=== PATIENT | male | born 1955 | race Caucasian/White ===

== ENCOUNTER 2021-11-20 11:12 | Emergency (ER) | payer BC, MEDICARE ==
[~2021-11-20] VITALS: Ht 185.4 cm; Wt 107.0 kg
[~2021-11-20 11:12] MED LIST: ASPI-1265 PO; NAPR220C15 PO; OMEG1CAP54 PO; OMEG500C PO; OMEP-84 PO
[2021-11-20 12:10] LABS: BASOPHILS % (AUTO) 0.4 % (0-1); EOSINOPHILS % (AUTO) 0.3 % (0-6); HEMATOCRIT 49.3 % (42.0-52.0); LYMPHOCYTES # (AUTO) 1.1 X10'3 (1.1-4.8); LYMPHOCYTES % (AUTO) 17.6 % (21-51); MEAN CORPUSCULAR HEMOGLOBIN 32.1 PG (27.0-31.0); MEAN CORPUSCULAR HGB CONC 34.4 g/dL (33.0-36.5); MEAN CORPUSCULAR VOLUME 93.2 FL (78-98); MEAN PLATELET VOLUME 8.1 FL (7.4-10.4); MONOCYTES % (AUTO) 15.7 % (2-12); NEUTROPHILS # (AUTO) 4.1 X10'3 (1.8-7.7); PLATELET COUNT 240 X10'3 (140-440); RED BLOOD COUNT 5.29 X10'6 (4.70-6.10); WHITE BLOOD COUNT 6.2 X10'3 (4.5-11.0)
[2021-11-20 12:39] LABS: ALANINE AMINOTRANSFERASE 38 U/L (12-78); ALBUMIN 4.1 G/DL (3.4-5.0); ALKALINE PHOSPHATASE 63 IU/L (46-116); ANION GAP 8 (8-16); ASPARTATE AMINO TRANSFERASE 30 U/L (10-37); BILIRUBIN,TOTAL 0.6 MG/DL (0.1-1.0); BLOOD UREA NITROGEN 11 MG/DL (7-18); BUN/CREATININE RATIO 8.6 (5.4-32.0); CALCIUM 9.4 MG/DL (8.5-10.1); CHLORIDE 104 MMOL/L (99-107); CREATININE 1.28 MG/DL (0.60-1.10); GLUCOSE 101 MG/DL (70-104); POTASSIUM 4.2 MMOL/L (3.5-5.1); SODIUM 141 MMOL/L (135-145); TOTAL CARBON DIOXIDE 28.6 MMOL/L (24-32); TOTAL PROTEIN 8.2 G/DL (6.4-8.2); eGFR 56 ML/MIN
[2021-11-20 15:00] VITALS: BP 144/103
[2021-11-20] MEDS ORDERED: acetaminophen 325mg tablet PO ONE (15:10)
[2021-11-20] MEDS ORDERED: dexamethasone 4mg/ml inj IV STA (15:27)
[2021-11-20] MEDS ORDERED: CASIRIVIMAB/IMDEVIMAB inject. 10 ML in normal saline 100ml IV soln 100 ML IV ONE (15:30)
[2021-11-20] MEDS ORDERED: DEXA6TAB6 PO ×2 (16:00)
--- NOTE | 2021-11-20 16:05 | NUR ---
Pt given and understands d/c instructions. Ambulatory with a steady gait.
== END 2021-11-20 16:05 | disposition home or self-care (01) ==
LOC: ER 11:12
DX: U07.1 COVID-19 (principal); R06.02 Shortness of breath; R42 Dizziness and giddiness; E78.00 Pure hypercholesterolemia, unspecified; K21.9 Gastro-esophageal reflux disease without esophagitis; Z72.89 Other problems related to lifestyle; Z79.82 Long term (current) use of aspirin; Z79.899 Other long term (current) drug therapy
CPT/HCPCS: 71045; 80053; 83605; 83880; 85025; 87635; 99284; C9803

== ENCOUNTER 2021-11-23 08:10 | Emergency (ER) | payer BC, MEDICARE ==
[~2021-11-23] VITALS: Ht 185.4 cm; Wt 106.8 kg
[~2021-11-23 08:10] MED LIST changes: +DEXA6TAB6 PO
[2021-11-23] MEDS ORDERED: BAMLANIVIMAB&ETESEVIMAB 2100mg 2,100 MG in normal saline 100ml IV soln 100 ML IV ONE (09:30)
[2021-11-23 09:42] LABS: BASOPHILS % (AUTO) 0.1 % (0-1); EOSINOPHILS % (AUTO) 0 % (0-6); HEMATOCRIT 47.8 % (42.0-52.0); HEMOGLOBIN 16.5 g/dl (14.0-17.9); LYMPHOCYTES # (AUTO) 0.5 X10'3 (1.1-4.8); LYMPHOCYTES % (AUTO) 5.5 % (21-51); MEAN CORPUSCULAR HGB CONC 34.5 g/dL (33.0-36.5); MEAN CORPUSCULAR VOLUME 92.7 FL (78-98); MEAN PLATELET VOLUME 8.1 FL (7.4-10.4); MONOCYTES # (AUTO) 0.9 X10'3 (0-0.9); MONOCYTES % (AUTO) 9.6 % (2-12); NEUTROPHILS # (AUTO) 7.7 X10'3 (1.8-7.7); NEUTROPHILS % (AUTO) 84.8 % (42-75); PLATELET COUNT 228 X10'3 (140-440); RED BLOOD COUNT 5.15 X10'6 (4.70-6.10); RED CELL DISTRIBUTION WIDTH 13.1 % (11.5-14.5); WHITE BLOOD COUNT 9.1 X10'3 (4.5-11.0)
[2021-11-23 09:46] LABS: D-DIMER 1.48 MG/L FEU (0-0.50)
[2021-11-23 09:49] LABS: ALANINE AMINOTRANSFERASE 66 U/L (12-78); ALKALINE PHOSPHATASE 60 IU/L (46-116); ANION GAP 8 (8-16); ASPARTATE AMINO TRANSFERASE 55 U/L (10-37); BILIRUBIN,TOTAL 0.7 MG/DL (0.1-1.0); BLOOD UREA NITROGEN 16 MG/DL (7-18); BUN/CREATININE RATIO 11.9 (5.4-32.0); C-REACTIVE PROTEIN 0.35 MG/DL (0.0-0.5); CALCIUM 9.1 MG/DL (8.5-10.1); CHLORIDE 101 MMOL/L (99-107); CREATININE 1.34 MG/DL (0.60-1.10); GLUCOSE 94 MG/DL (70-104); POTASSIUM 3.5 MMOL/L (3.5-5.1); SODIUM 137 MMOL/L (135-145); TOTAL CARBON DIOXIDE 27.6 MMOL/L (24-32); TOTAL PROTEIN 7.9 G/DL (6.4-8.2); eGFR 53 ML/MIN
[2021-11-23 12:45] VITALS: BP 134/92
--- NOTE | 2021-11-23 12:45 | NUR ---
Pt given and understands d/c instructions. IV d/c'd, catheter was intact. Ambulatory with a steady gait.
== END 2021-11-23 14:00 | disposition home or self-care (01) ==
LOC: ER 08:35
DX: U07.1 COVID-19 (principal); R06.00 Dyspnea, unspecified; E78.00 Pure hypercholesterolemia, unspecified; K21.9 Gastro-esophageal reflux disease without esophagitis; Z79.899 Other long term (current) drug therapy; Z79.82 Long term (current) use of aspirin
CPT/HCPCS: 36415; 71045; 80053; 84145; 85025; 85379; 86140; 99291; J3490; M0245; Q0245

== ENCOUNTER 2021-11-26 11:00 | Emergency (ER) | payer BC ==
[~2021-11-26] VITALS: Ht 180.3 cm; Wt 81.8 kg
[2021-11-26 12:38] LABS: BASOPHILS % (AUTO) 0.2 % (0-1); EOSINOPHILS % (AUTO) 0 % (0-6); HEMATOCRIT 49.7 % (42.0-52.0); HEMOGLOBIN 17.1 g/dl (14.0-17.9); LYMPHOCYTES # (AUTO) 1.3 X10'3 (1.1-4.8); LYMPHOCYTES % (AUTO) 14.6 % (21-51); MEAN CORPUSCULAR HEMOGLOBIN 31.9 PG (27.0-31.0); MEAN CORPUSCULAR HGB CONC 34.5 g/dL (33.0-36.5); MEAN CORPUSCULAR VOLUME 92.6 FL (78-98); MEAN PLATELET VOLUME 8.2 FL (7.4-10.4); MONOCYTES # (AUTO) 1.3 X10'3 (0-0.9); MONOCYTES % (AUTO) 14.6 % (2-12); NEUTROPHILS # (AUTO) 6.5 X10'3 (1.8-7.7); NEUTROPHILS % (AUTO) 70.6 % (42-75); PLATELET COUNT 304 X10'3 (140-440); RED BLOOD COUNT 5.36 X10'6 (4.70-6.10); WHITE BLOOD COUNT 9.3 X10'3 (4.5-11.0)
[2021-11-26 12:51] LABS: ALANINE AMINOTRANSFERASE 190 U/L (12-78); ALBUMIN 3.8 G/DL (3.4-5.0); ALBUMIN/GLOBULIN RATIO 0.8 (1.1-1.5); ALKALINE PHOSPHATASE 70 IU/L (46-116); ANION GAP 10 (8-16); ASPARTATE AMINO TRANSFERASE 81 U/L (10-37); BILIRUBIN,TOTAL 0.8 MG/DL (0.1-1.0); BLOOD UREA NITROGEN 18 MG/DL (7-18); BUN/CREATININE RATIO 14.8 (5.4-32.0); CALCIUM 9.5 MG/DL (8.5-10.1); CHLORIDE 101 MMOL/L (99-107); CREATININE 1.22 MG/DL (0.60-1.10); GLUCOSE 95 MG/DL (70-104); POTASSIUM 4.1 MMOL/L (3.5-5.1); SODIUM 140 MMOL/L (135-145); TOTAL CARBON DIOXIDE 28.9 MMOL/L (24-32); TOTAL PROTEIN 8.7 G/DL (6.4-8.2); eGFR 59 ML/MIN
[2021-11-26] MEDS ORDERED: dexamethasone sod phosphate 10mg/ml inj IV STA (13:44)
[2021-11-26] MEDS ORDERED: iohexol 350MG/ML 100ml bottle IV ONE (15:05)
[2021-11-26] MEDS ORDERED: normal saline 1000ML IV soln IVB ONE (17:10)
[2021-11-26] MEDS ORDERED: acetaminophen 325mg tablet PO ONE ×2 (17:10→18:00)
[2021-11-26] MEDS ORDERED: PRED20TA PO ×3 (18:02→18:03)
[2021-11-26 18:57] VITALS: BP 155/107
[2021-11-27] MEDS ORDERED: MULT-1085 PO (16:45)
[2021-11-27] MEDS ORDERED: OMEG10006 PO (16:45)
[2021-11-27] MEDS ORDERED: ASPI-611 PO (16:45)
== END 2021-11-26 18:29 | disposition home or self-care (01) ==
LOC: ER 11:01
DX: U07.1 COVID-19 (principal); E78.00 Pure hypercholesterolemia, unspecified; K21.9 Gastro-esophageal reflux disease without esophagitis; Z72.89 Other problems related to lifestyle; Z79.82 Long term (current) use of aspirin; Z79.899 Other long term (current) drug therapy
CPT/HCPCS: 36415; 71045; 71275; 80053; 83880; 84145; 85025; 85610; 87502; 87503; 93005; 96361; 96374; 99285; J1100; J7030; Q9967

== ENCOUNTER 2021-11-27 14:39 | Inpatient (IN) | payer BC ==
[~2021-11-27] VITALS: Ht 185.4 cm; Wt 106.8 kg
[~2021-11-27 14:39] MED LIST changes: +PRED20TA PO
[2021-11-27] MEDS ORDERED: DEXAMETHASONE 6 MG TABLET PO STA (15:10)
[2021-11-27 15:42] LABS: BASOPHILS % (AUTO) 0.2 % (0-1); EOSINOPHILS % (AUTO) 0 % (0-6); HEMATOCRIT 48.4 % (42.0-52.0); HEMOGLOBIN 16.4 g/dl (14.0-17.9); LYMPHOCYTES % (AUTO) 10.5 % (21-51); MEAN CORPUSCULAR HEMOGLOBIN 31.3 PG (27.0-31.0); MEAN CORPUSCULAR VOLUME 92.2 FL (78-98); MEAN PLATELET VOLUME 7.8 FL (7.4-10.4); MONOCYTES # (AUTO) 1.8 X10'3 (0-0.9); MONOCYTES % (AUTO) 20.2 % (2-12); NEUTROPHILS # (AUTO) 6.3 X10'3 (1.8-7.7); NEUTROPHILS % (AUTO) 69.1 % (42-75); PLATELET COUNT 327 X10'3 (140-440); RED BLOOD COUNT 5.25 X10'6 (4.70-6.10); RED CELL DISTRIBUTION WIDTH 13.1 % (11.5-14.5); WHITE BLOOD COUNT 9.1 X10'3 (4.5-11.0)
[2021-11-27 15:53] LABS: ALANINE AMINOTRANSFERASE 127 U/L (12-78); ALBUMIN 3.3 G/DL (3.4-5.0); ALBUMIN/GLOBULIN RATIO 0.8 (1.1-1.5); ALKALINE PHOSPHATASE 64 IU/L (46-116); ANION GAP 11 (8-16); ASPARTATE AMINO TRANSFERASE 50 U/L (10-37); BILIRUBIN,TOTAL 0.9 MG/DL (0.1-1.0); BLOOD UREA NITROGEN 16 MG/DL (7-18); BUN/CREATININE RATIO 15.7 (5.4-32.0); CALCIUM 9.2 MG/DL (8.5-10.1); CHLORIDE 100 MMOL/L (99-107); CREATININE 1.02 MG/DL (0.60-1.10); GLUCOSE 107 MG/DL (70-104); POTASSIUM 3.8 MMOL/L (3.5-5.1); SODIUM 133 MMOL/L (135-145); TOTAL CARBON DIOXIDE 22.5 MMOL/L (24-32); TOTAL PROTEIN 7.7 G/DL (6.4-8.2); eGFR 73 ML/MIN
[2021-11-27 16:20] LABS: PLATELET ESTIMATE NORMAL; TOTAL CELLS COUNTED 100
[2021-11-27] MEDS ORDERED: potassium CL 10mEq/100ml bag 100 ML IV PRN (16:35)
[2021-11-27] MEDS ORDERED: magnesium Cl slow-release 64mg tablet PO PRN (16:35)
[2021-11-27] MEDS ORDERED: magnesium hydroxide 30ml (MOM) UD suspension PO PRN (16:35)
[2021-11-27] MEDS ORDERED: magnesium 4gm in 100ml NS 100 ML IV PRN (16:35)
[2021-11-27] MEDS ORDERED: mag hydrox/Alum hydrox/simeth 30ml oral suspension PO PRN (16:35)
[2021-11-27] MEDS ORDERED: morphine 2 MG/ML inj. syringe IV PRN (16:35)
[2021-11-27] MEDS ORDERED: potassium Cl 20 mEq SR tablet PO PRN ×2 (16:35)
[2021-11-27] MEDS ORDERED: HYDROcodone/acetaminophen 5mg/325mg tablet PO PRN (16:35)
[2021-11-27] MEDS ORDERED: magnesium 2GM in 50ml NS 50 ML IV PRN (16:35)
[2021-11-27] MEDS ORDERED: acetaminophen 325mg tablet PO PRN ×2 (16:35)
[2021-11-27] MEDS ORDERED: normal saline 1000ml 1,000 ML IV SCH (16:35)
[2021-11-27] MEDS ORDERED: ondansetron/PF 4mg/2ml inj IV PRN (16:35)
[2021-11-27] MEDS ORDERED: MULT-1085 PO (16:45)
[2021-11-27] MEDS ORDERED: ASPI-611 PO (16:45)
[2021-11-27] MEDS ORDERED: OMEG10006 PO (16:45)
[2021-11-27 17:45] LABS: D-DIMER 2.92 MG/L FEU (0-0.50)
[2021-11-27 18:31] LABS: C-REACTIVE PROTEIN 5.76 MG/DL (0.0-0.5)
[2021-11-27] MEDS ORDERED: LORazepam 1 MG tablet PO PRN (19:30)
[2021-11-27] MEDS ORDERED: LORazepam 2 mg/ml vial IV PRN (19:30)
[2021-11-27] MEDS: K and/or MAG REPLACEMENT MC SCH (20:21)
[2021-11-27] MEDS: dexamethasone 4mg/ml inj IV SCH (20:25)
--- NOTE | 2021-11-28 01:35 | NUR ---
Patient resting comfortably in room on 6L of oxygen. No current issues or updates.
[2021-11-28] MEDS: heparin, porcine 5000 units/ml vial SQ SCH ×2 (02:46→08:22)
[2021-11-28 04:15] VITALS: BP 132/91
[2021-11-28 06:00] VITALS: BP 158/105
[2021-11-28] MEDS: K and/or MAG REPLACEMENT MC SCH ×2 (08:00→19:06)
[2021-11-28] MEDS ORDERED: CefTRIAXone 2gm/D5W 50ml BAG 50 ML IV SCH (08:00)
[2021-11-28] MEDS: pantoprazole 40mg Tablet.DR PO SCH (08:21)
[2021-11-28] MEDS: multivitamins, therapeutics tablet PO SCH (08:21)
[2021-11-28] MEDS: dexamethasone 4mg/ml inj IV SCH ×2 (08:22→19:05)
[2021-11-28 09:12] LABS: BASOPHILS % (AUTO) 0.1 % (0-1); EOSINOPHILS % (AUTO) 0 % (0-6); HEMATOCRIT 47.9 % (42.0-52.0); HEMOGLOBIN 16.4 g/dl (14.0-17.9); LYMPHOCYTES # (AUTO) 0.7 X10'3 (1.1-4.8); LYMPHOCYTES % (AUTO) 11.8 % (21-51); MEAN CORPUSCULAR HEMOGLOBIN 31.7 PG (27.0-31.0); MEAN CORPUSCULAR HGB CONC 34.2 g/dL (33.0-36.5); MEAN CORPUSCULAR VOLUME 92.7 FL (78-98); MEAN PLATELET VOLUME 8.5 FL (7.4-10.4); MONOCYTES # (AUTO) 1.2 X10'3 (0-0.9); MONOCYTES % (AUTO) 21.3 % (2-12); NEUTROPHILS # (AUTO) 3.9 X10'3 (1.8-7.7); NEUTROPHILS % (AUTO) 66.8 % (42-75); PLATELET COUNT 365 X10'3 (140-440); RED BLOOD COUNT 5.17 X10'6 (4.70-6.10); RED CELL DISTRIBUTION WIDTH 13.1 % (11.5-14.5); WHITE BLOOD COUNT 5.8 X10'3 (4.5-11.0)
[2021-11-28 09:24] LABS: ALANINE AMINOTRANSFERASE 119 U/L (12-78); ALBUMIN 3.1 G/DL (3.4-5.0); ALBUMIN/GLOBULIN RATIO 0.7 (1.1-1.5); ALKALINE PHOSPHATASE 62 IU/L (46-116); ANION GAP 14 (8-16); ASPARTATE AMINO TRANSFERASE 48 U/L (10-37); BILIRUBIN,TOTAL 0.9 MG/DL (0.1-1.0); BLOOD UREA NITROGEN 18 MG/DL (7-18); CALCIUM 9.3 MG/DL (8.5-10.1); CHLORIDE 102 MMOL/L (99-107); CREATININE 1.06 MG/DL (0.60-1.10); GLUCOSE 110 MG/DL (70-104); POTASSIUM 4.3 MMOL/L (3.5-5.1); SODIUM 138 MMOL/L (135-145); TOTAL CARBON DIOXIDE 22.3 MMOL/L (24-32); TOTAL PROTEIN 7.7 G/DL (6.4-8.2); eGFR 69 ML/MIN
[2021-11-28 10:00] VITALS: BP 141/81
[2021-11-28 11:02] LABS: PLATELET ESTIMATE NORMAL; TOTAL CELLS COUNTED 100
[2021-11-28 14:00] VITALS: BP 118/79
[2021-11-28 18:00] VITALS: BP 112/82
--- NOTE | 2021-11-28 18:24 | NUR ---
Problems reprioritized. Patient report given, questions answered & plan of care reviewed with Lety OLIVA.
[2021-11-28] MEDS: enoxaparin 40mg/0.4ml syringe SUBCUT SCH (19:06)
[2021-11-28 22:00] VITALS: BP 96/68
[2021-11-29 02:00] VITALS: BP 111/72
[2021-11-29 06:00] VITALS: BP 114/64
[2021-11-29] MEDS: multivitamins, therapeutics tablet PO SCH (07:52)
[2021-11-29] MEDS: pantoprazole 40mg Tablet.DR PO SCH (07:52)
[2021-11-29] MEDS: dexamethasone 4mg/ml inj IV SCH ×2 (07:53→19:51)
[2021-11-29] MEDS: enoxaparin 40mg/0.4ml syringe SUBCUT SCH ×2 (07:53→19:51)
[2021-11-29] MEDS: K and/or MAG REPLACEMENT MC SCH ×2 (08:00→19:50)
[2021-11-29 08:27] LABS: BASOPHILS % (AUTO) 0.1 % (0-1); EOSINOPHILS % (AUTO) 0 % (0-6); HEMATOCRIT 46.7 % (42.0-52.0); HEMOGLOBIN 16.2 g/dl (14.0-17.9); LYMPHOCYTES # (AUTO) 0.9 X10'3 (1.1-4.8); LYMPHOCYTES % (AUTO) 9.6 % (21-51); MEAN CORPUSCULAR HGB CONC 34.8 g/dL (33.0-36.5); MEAN CORPUSCULAR VOLUME 92.1 FL (78-98); MEAN PLATELET VOLUME 8.2 FL (7.4-10.4); MONOCYTES # (AUTO) 1.5 X10'3 (0-0.9); NEUTROPHILS # (AUTO) 6.8 X10'3 (1.8-7.7); NEUTROPHILS % (AUTO) 74.3 % (42-75); PLATELET COUNT 419 X10'3 (140-440); RED BLOOD COUNT 5.07 X10'6 (4.70-6.10); RED CELL DISTRIBUTION WIDTH 12.8 % (11.5-14.5); WHITE BLOOD COUNT 9.1 X10'3 (4.5-11.0)
[2021-11-29 09:42] LABS: ALBUMIN 3.1 G/DL (3.4-5.0); ALBUMIN/GLOBULIN RATIO 0.7 (1.1-1.5); ALKALINE PHOSPHATASE 61 IU/L (46-116); ANION GAP 10 (8-16); ASPARTATE AMINO TRANSFERASE 76 U/L (10-37); BILIRUBIN,TOTAL 0.8 MG/DL (0.1-1.0); BLOOD UREA NITROGEN 27 MG/DL (7-18); BUN/CREATININE RATIO 22.5 (5.4-32.0); C-REACTIVE PROTEIN 2.25 MG/DL (0.0-0.5); CALCIUM 9.5 MG/DL (8.5-10.1); CHLORIDE 104 MMOL/L (99-107); GLUCOSE 94 MG/DL (70-104); POTASSIUM 4.7 MMOL/L (3.5-5.1); SODIUM 139 MMOL/L (135-145); TOTAL PROTEIN 7.7 G/DL (6.4-8.2); eGFR 60 ML/MIN
[2021-11-29 10:00] VITALS: BP 118/71
[2021-11-29 10:42] LABS: ALANINE AMINOTRANSFERASE 178 U/L (12-78)
[2021-11-29 11:04] LABS: D-DIMER 2.26 MG/L FEU (0-0.50)
[2021-11-29 14:00] VITALS: BP 111/62
--- NOTE | 2021-11-29 16:57 | NUR ---
PAGER ID: [phone] MESSAGE: [id number]. Can I get order for nasal spray? Patient is having dry nose/minimal nose bleed. Soni OLIVA [id number]
[2021-11-29 18:00] VITALS: BP 123/86
--- NOTE | 2021-11-29 18:24 | NUR ---
Patient in room ORTHO 4011. I have received report from Soni OLIVA and had the opportunity to ask questions and assume patient care.
--- NOTE | 2021-11-29 18:30 | NUR ---
Problems reprioritized. Patient report given, questions answered & plan of care reviewed with Nataliya OLIVA.
[2021-11-29 22:00] VITALS: BP 105/72
[2021-11-30 02:00] VITALS: BP 127/81
[2021-11-30 06:00] VITALS: BP 122/78
--- NOTE | 2021-11-30 06:42 | NUR ---
Problems reprioritized. Patient report given, questions answered & plan of care reviewed with Ale OLIVA.
[2021-11-30] MEDS: K and/or MAG REPLACEMENT MC SCH ×2 (07:34→19:17)
[2021-11-30] MEDS: enoxaparin 40mg/0.4ml syringe SUBCUT SCH ×2 (07:34→19:18)
[2021-11-30] MEDS: pantoprazole 40mg Tablet.DR PO SCH (07:34)
[2021-11-30] MEDS: dexamethasone 4mg/ml inj IV SCH ×2 (07:34→19:17)
[2021-11-30] MEDS: multivitamins, therapeutics tablet PO SCH (07:34)
[2021-11-30 08:41] LABS: BASOPHILS % (AUTO) 0.1 % (0-1); EOSINOPHILS % (AUTO) 0 % (0-6); HEMATOCRIT 46.5 % (42.0-52.0); HEMOGLOBIN 16.2 g/dl (14.0-17.9); LYMPHOCYTES # (AUTO) 0.9 X10'3 (1.1-4.8); LYMPHOCYTES % (AUTO) 8.8 % (21-51); MEAN CORPUSCULAR HEMOGLOBIN 32.1 PG (27.0-31.0); MEAN CORPUSCULAR HGB CONC 34.8 g/dL (33.0-36.5); MEAN PLATELET VOLUME 8.2 FL (7.4-10.4); MONOCYTES # (AUTO) 1.6 X10'3 (0-0.9); MONOCYTES % (AUTO) 14.5 % (2-12); NEUTROPHILS # (AUTO) 8.2 X10'3 (1.8-7.7); NEUTROPHILS % (AUTO) 76.6 % (42-75); PLATELET COUNT 435 X10'3 (140-440); RED BLOOD COUNT 5.05 X10'6 (4.70-6.10); RED CELL DISTRIBUTION WIDTH 12.8 % (11.5-14.5); WHITE BLOOD COUNT 10.7 X10'3 (4.5-11.0)
[2021-11-30 08:56] LABS: ALANINE AMINOTRANSFERASE 233 U/L (12-78); ALBUMIN 3.3 G/DL (3.4-5.0); ALBUMIN/GLOBULIN RATIO 0.7 (1.1-1.5); ALKALINE PHOSPHATASE 65 IU/L (46-116); ANION GAP 11 (8-16); ASPARTATE AMINO TRANSFERASE 64 U/L (10-37); BLOOD UREA NITROGEN 26 MG/DL (7-18); BUN/CREATININE RATIO 22.4 (5.4-32.0); CALCIUM 9.4 MG/DL (8.5-10.1); CHLORIDE 102 MMOL/L (99-107); CREATININE 1.16 MG/DL (0.60-1.10); GLUCOSE 91 MG/DL (70-104); POTASSIUM 4.2 MMOL/L (3.5-5.1); SODIUM 139 MMOL/L (135-145); TOTAL CARBON DIOXIDE 26.3 MMOL/L (24-32); eGFR 63 ML/MIN
[2021-11-30 10:00] VITALS: BP 119/85
[2021-11-30] MEDS ORDERED: salt irrigation nasal spray 45 ML SPRAY NS PRN (10:50)
--- NOTE | 2021-11-30 11:41 | NUR ---
Assumed care of pt. Pt awake and alert laying on right side. Pt denied any SOB or pain at this time. [place] spray given per order.
[2021-11-30 14:00] VITALS: BP 121/79
--- NOTE | 2021-11-30 16:31 | NUR ---
Initial: Pt admit for hypoxemic resp fail secondary to COVID PNA with transaminitis of unclear etiology. Currently on a heart healthy diet and overall eating well, initially with 50% PO intake which has improved to mostly 100% PO intake since 11/29. Recommend liberalizing to regular diet in view of no cardiac PMH per EMR. LBM 11/30. No documented edema or wounds. No nutrition intervention implemented at this time. Will continue to follow. Recommendations: 1) Liberalize to regular diet in view of no cardiac PMH per EMR 2) Monitor need for ONS/additional protein 3) Bowel care PRN 4) Scaled weight this admit; weekly scaled weights thereafter Addendum: 11/30/21 at [address] Amended: Links added.
[2021-11-30 18:00] VITALS: BP 125/83
[2021-11-30 18:44] LABS: HBSAG SCREEN Negative (Negative); HEPATITIS C ANTIBODY 0.2 s/co ratio (0.0-0.9)
--- NOTE | 2021-11-30 18:45 | NUR ---
Patient in room ORTHO 4011. I have received report from Jeffrey OLIVA and had the opportunity to ask questions and assume patient care.
[2021-11-30 22:00] VITALS: BP 105/64
[2021-12-01 02:00] VITALS: BP 96/55
[2021-12-01 06:00] VITALS: BP 104/65
--- NOTE | 2021-12-01 06:30 | NUR ---
Problems reprioritized. Patient report given, questions answered & plan of care reviewed with Esmer OLIVA.
[2021-12-01 07:49] LABS: BASOPHILS % (AUTO) 0.1 % (0-1); EOSINOPHILS % (AUTO) 0.1 % (0-6); LYMPHOCYTES # (AUTO) 0.7 X10'3 (1.1-4.8); LYMPHOCYTES % (AUTO) 7.4 % (21-51); MEAN PLATELET VOLUME 7.7 FL (7.4-10.4); MONOCYTES # (AUTO) 1.5 X10'3 (0-0.9); MONOCYTES % (AUTO) 15.2 % (2-12); NEUTROPHILS # (AUTO) 7.5 X10'3 (1.8-7.7); NEUTROPHILS % (AUTO) 77.2 % (42-75); WHITE BLOOD COUNT 9.7 X10'3 (4.5-11.0)
[2021-12-01] MEDS: K and/or MAG REPLACEMENT MC SCH ×2 (08:00→19:23)
[2021-12-01] MEDS: pantoprazole 40mg Tablet.DR PO SCH (08:11)
[2021-12-01] MEDS: multivitamins, therapeutics tablet PO SCH (08:11)
[2021-12-01] MEDS: dexamethasone 4mg/ml inj IV SCH ×2 (08:11→20:20)
[2021-12-01] MEDS: enoxaparin 40mg/0.4ml syringe SUBCUT SCH ×2 (08:11→20:20)
[2021-12-01] MEDS: thiamine 100mg tablet PO SCH (08:12)
[2021-12-01] MEDS: folic acid 1mg tablet PO SCH (08:12)
[2021-12-01 08:15] LABS: ALANINE AMINOTRANSFERASE 166 U/L (12-78); ALBUMIN 2.8 G/DL (3.4-5.0); ALBUMIN/GLOBULIN RATIO 0.7 (1.1-1.5); ALKALINE PHOSPHATASE 55 IU/L (46-116); ANION GAP 10 (8-16); ASPARTATE AMINO TRANSFERASE 34 U/L (10-37); BILIRUBIN,TOTAL 0.7 MG/DL (0.1-1.0); BLOOD UREA NITROGEN 24 MG/DL (7-18); BUN/CREATININE RATIO 23.1 (5.4-32.0); C-REACTIVE PROTEIN 0.83 MG/DL (0.0-0.5); CALCIUM 8.8 MG/DL (8.5-10.1); CHLORIDE 103 MMOL/L (99-107); CREATININE 1.04 MG/DL (0.60-1.10); GLUCOSE 95 MG/DL (70-104); POTASSIUM 4.2 MMOL/L (3.5-5.1); SODIUM 136 MMOL/L (135-145); TOTAL CARBON DIOXIDE 23.5 MMOL/L (24-32); eGFR 71 ML/MIN
[2021-12-01 08:25] LABS: HEMATOCRIT 47.4 % (42.0-52.0); HEMOGLOBIN 16.6 g/dl (14.0-17.9); MEAN CORPUSCULAR HEMOGLOBIN 32.6 PG (27.0-31.0); MEAN CORPUSCULAR HGB CONC 35.1 g/dL (33.0-36.5); RED CELL DISTRIBUTION WIDTH 12.4 % (11.5-14.5)
[2021-12-01 08:26] LABS: PLATELET COUNT 432 X10'3 (140-440)
[2021-12-01 08:52] LABS: D-DIMER 1.37 MG/L FEU (0-0.50)
--- NOTE | 2021-12-01 09:50 | NUR ---
Pt. ambulated rojas on 15L; No SOB or desaturation noted; Pt. 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 weaned back to 9L once in bed O2 saturation 92% at rest. [facility]
[2021-12-01 10:00] VITALS: BP 102/62
[2021-12-01 15:00] VITALS: BP 111/71
[2021-12-01 18:00] VITALS: BP 120/81
--- NOTE | 2021-12-01 18:35 | NUR ---
Problems reprioritized. Patient report given to Kasia RN, questions answered & plan of care reviewed with Kasia RN.
[2021-12-01 22:00] VITALS: BP 94/58
[2021-12-02 02:00] VITALS: BP 101/69
[2021-12-02 06:10] VITALS: BP 87/54
--- NOTE | 2021-12-02 06:30 | NUR ---
Patient in room ORTHO 4011. I have received report from Kasia OLIVA and had the opportunity to ask questions and assume patient care.
[2021-12-02] MEDS: multivitamins, therapeutics tablet PO SCH (07:38)
[2021-12-02] MEDS: pantoprazole 40mg Tablet.DR PO SCH (07:38)
[2021-12-02] MEDS: folic acid 1mg tablet PO SCH (07:38)
[2021-12-02] MEDS: dexamethasone 4mg/ml inj IV SCH ×2 (07:38→19:41)
[2021-12-02] MEDS: thiamine 100mg tablet PO SCH (07:38)
[2021-12-02] MEDS: enoxaparin 40mg/0.4ml syringe SUBCUT SCH ×2 (07:39→19:41)
[2021-12-02 08:00] LABS: BASOPHILS % (AUTO) 0.1 % (0-1); EOSINOPHILS % (AUTO) 0.5 % (0-6); HEMATOCRIT 45.5 % (42.0-52.0); HEMOGLOBIN 15.8 g/dl (14.0-17.9); LYMPHOCYTES # (AUTO) 0.9 X10'3 (1.1-4.8); LYMPHOCYTES % (AUTO) 8.7 % (21-51); MEAN CORPUSCULAR HGB CONC 34.7 g/dL (33.0-36.5); MEAN CORPUSCULAR VOLUME 92.3 FL (78-98); MEAN PLATELET VOLUME 7.8 FL (7.4-10.4); MONOCYTES # (AUTO) 1.8 X10'3 (0-0.9); MONOCYTES % (AUTO) 17.6 % (2-12); NEUTROPHILS # (AUTO) 7.5 X10'3 (1.8-7.7); NEUTROPHILS % (AUTO) 73.1 % (42-75); PLATELET COUNT 446 X10'3 (140-440); RED BLOOD COUNT 4.94 X10'6 (4.70-6.10); RED CELL DISTRIBUTION WIDTH 12.8 % (11.5-14.5); WHITE BLOOD COUNT 10.2 X10'3 (4.5-11.0)
[2021-12-02] MEDS: K and/or MAG REPLACEMENT MC SCH ×2 (08:00→19:18)
[2021-12-02 08:16] LABS: D-DIMER 1.26 MG/L FEU (0-0.50)
[2021-12-02 08:25] LABS: ALANINE AMINOTRANSFERASE 146 U/L (12-78); ALBUMIN 2.9 G/DL (3.4-5.0); ALBUMIN/GLOBULIN RATIO 0.6 (1.1-1.5); ALKALINE PHOSPHATASE 58 IU/L (46-116); ANION GAP 8 (8-16); ASPARTATE AMINO TRANSFERASE 28 U/L (10-37); BILIRUBIN,TOTAL 0.7 MG/DL (0.1-1.0); BLOOD UREA NITROGEN 22 MG/DL (7-18); BUN/CREATININE RATIO 19.5 (5.4-32.0); C-REACTIVE PROTEIN 1.97 MG/DL (0.0-0.5); CALCIUM 9.3 MG/DL (8.5-10.1); CHLORIDE 104 MMOL/L (99-107); CREATININE 1.13 MG/DL (0.60-1.10); GLUCOSE 97 MG/DL (70-104); POTASSIUM 4.6 MMOL/L (3.5-5.1); SODIUM 140 MMOL/L (135-145); TOTAL CARBON DIOXIDE 28.5 MMOL/L (24-32); TOTAL PROTEIN 7.4 G/DL (6.4-8.2); eGFR 65 ML/MIN
[2021-12-02 10:00] VITALS: BP 93/58
[2021-12-02 14:00] VITALS: BP 99/63
[2021-12-02 18:00] VITALS: BP 120/89
[2021-12-02 22:00] VITALS: BP 88/50
[2021-12-03 02:00] VITALS: BP 88/54
[2021-12-03 06:00] VITALS: BP 117/84
--- NOTE | 2021-12-03 06:38 | NUR ---
Patient in room ORTHO 4011. I have received report from Georgette OLIVA and had the opportunity to ask questions and assume patient care.
[2021-12-03] MEDS: K and/or MAG REPLACEMENT MC SCH ×2 (08:00→19:13)
[2021-12-03] MEDS: multivitamins, therapeutics tablet PO SCH (08:58)
[2021-12-03] MEDS: folic acid 1mg tablet PO SCH (08:58)
[2021-12-03] MEDS: thiamine 100mg tablet PO SCH (08:58)
[2021-12-03] MEDS: dexamethasone 4mg/ml inj IV SCH ×2 (08:59→19:59)
[2021-12-03] MEDS: enoxaparin 40mg/0.4ml syringe SUBCUT SCH ×2 (08:59→20:01)
[2021-12-03] MEDS: pantoprazole 40mg Tablet.DR PO SCH (09:00)
[2021-12-03 10:00] VITALS: BP 128/71
[2021-12-03 18:00] VITALS: BP 119/85
--- NOTE | 2021-12-03 18:38 | NUR ---
Problems reprioritized. Patient report given, questions answered & plan of care reviewed with Kasia OLIVA.
[2021-12-03 22:00] VITALS: BP 111/81
[2021-12-04 02:00] VITALS: BP 98/64
[2021-12-04 06:00] VITALS: BP 87/54
--- NOTE | 2021-12-04 06:55 | NUR ---
Patient in room ORTHO 4011. I have received report from Kasia OLIVA and had the opportunity to ask questions and assume patient care.
[2021-12-04] MEDS: multivitamins, therapeutics tablet PO SCH (07:12)
[2021-12-04] MEDS: folic acid 1mg tablet PO SCH (07:12)
[2021-12-04] MEDS: dexamethasone 4mg/ml inj IV SCH (07:12)
[2021-12-04] MEDS: thiamine 100mg tablet PO SCH (07:12)
[2021-12-04] MEDS: pantoprazole 40mg Tablet.DR PO SCH (07:12)
[2021-12-04] MEDS: enoxaparin 40mg/0.4ml syringe SUBCUT SCH (07:12)
[2021-12-04] MEDS: K and/or MAG REPLACEMENT MC SCH (08:00)
[2021-12-04 08:53] LABS: D-DIMER 0.77 MG/L FEU (0-0.50)
[2021-12-04] MEDS ORDERED: DEC4T PO (08:58)
[2021-12-04] MEDS ORDERED: APIX5TAB3 PO (08:58)
--- NOTE | 2021-12-04 10:00 | NUR ---
Patient discharged at this time. Meds e-scribed to [facility]. Patient already has home 02 arranged in ED on the 25 of November. Case management and MD said this prescription is appropriate for the 4 Liters. He walked on 4 L this morning satting at 90 or 91 percent. Patient picked him up.
== END 2021-12-04 11:00 | disposition home or self-care (01) | DRG 177 ==
LOC: ER 14:40 → ED HOLD 16:40 → ORTHO 4S 11-28 04:05
PROVIDERS: ADMIT Internal Medicine; ATTEND Internal Medicine
PROC: 5A0955A Assistance with Respiratory Ventilation, Greater than 96 Consecutive Hours, High Flow/Velocity Cannula (ICD-10-PCS; principal; 2021-11-28)
DX: U07.1 COVID-19 (principal); J12.82 Pneumonia due to coronavirus disease 2019; J96.01 Acute respiratory failure with hypoxia; E87.1 Hypo-osmolality and hyponatremia; R74.01 Elevation of levels of liver transaminase levels; K21.9 Gastro-esophageal reflux disease without esophagitis; R74.8 Abnormal levels of other serum enzymes; E78.00 Pure hypercholesterolemia, unspecified; Z79.01 Long term (current) use of anticoagulants; Z79.82 Long term (current) use of aspirin
CPT/HCPCS: 36415; 71045; 80053; 83605; 84145; 85007; 85025; 85379; 86140; 86803; 87040; 87081; 87340; 94760; 97110; 97116; 97161; 97530; 99285; G0378; J0696; J1100; J1644; J1650; J7030; J8540

== ENCOUNTER 2025-03-22 17:28 | Emergency (ER) | payer MEDICARE ==
[~2025-03-22] VITALS: Ht 185.4 cm; Wt 100.0 kg
[~2025-03-22 17:28] MED LIST changes: +AMOX-580 PO; -ASPI-1265 PO; +ASPI-611 PO; -DEXA6TAB6 PO; +HYDR-3972 PO; +LACT1CAP65 PO; +LOSA25TA41 PO; +MULT-1085 PO; -NAPR220C15 PO; -OMEG1CAP54 PO; -OMEG500C PO; -OMEP-84 PO; +OMEP40CA21 PO; -PRED20TA PO
--- NOTE | 2025-03-22 17:49 | Physician Documentation ---
History of Present Illness ~ Chief Complaint: Mechanical Fall Stated Complaint: FALL/HEAD AND HAND PAIN Time Seen by MD: 21:12 HPI This is a 69-year-old male tripped and fell while playing pickleball falling on outstretched right hand and striking the right side of his face and his right knee, patient reports pain in hand and wrist is worse. Patient reports not on blood thinners, did not lose consciousness, no nausea or vomiting. Patient reports no loss of feeling in right hand. Patient reports right knee is no npainful other than small abrasion to the lateral aspect. Patient reports no neck pain and no new numbness or weakness in extremities. Tetanus within 5 Years?: No Medication Reconciliation Allergies: Coded Allergies: adhesive tape (Verified Allergy, Intermediate, SKIN PEELING, 03/22/25) S/P LAP APPY AND PARTIAL OPEN (SKIN PEELING DUE TO IRRITATION FROM TAPE) Scheduled Amox Tr/Potassium Clavulanate 875/125 MG (Augmentin 875/125 MG), 1 TAB PO BID Aspirin (Aspir 81), 1 TAB PO DAILY, (Reported) Lactobacillus Acidophilus (Probiotic), 1 CAP PO Q8H Losartan Potassium (Losartan Potassium), 25 MG PO DAILY Multivitamin (Multi Vitamin Daily), 1 TAB PO DAILY, (Reported) Omeprazole (Prilosec), 1 CAP PO DAILY, (Reported) Scheduled PRN Hydrocodone Bit/Acetaminophen (Hydrocodon-Acetaminophn 10-325 tablet), 1 TAB PO Q6H PRN for SEVERE PAIN 7-10 Past Medical History Past Medical History: High Cholesterol, GERD Past Surgical History: other Patient History: FH: breast cancer MOTHER Sister FH: diverticulitis FATHER brother FH: prostate cancer FATHER Alcohol Use: Occasionally Drug Use: none Lives In: Home Review of Systems ROS All review of systems negative except as per HPI Physical Exam Vital Signs: Temperature: 98.2, Source: Temporal, Heart Rate: 107, Respiratory Rate: 16, BP: 137/97, Pulse Oximetry: 97, Weight: 100.000 Physical Exam General: Patient is awake, alert, oriented x4 in no acute distress Head: Normocephalic abrasion with mild bleeding to patient's right eyebrow with no full-thickness laceration Eyes: Conjunctival normal. EOMI. PERRL. ENT: Mucous membranes moist. Neck: Supple, trachea is midline. No cervical midline tenderness Chest: Clear to auscultation bilaterally without rales, rhonchi, or wheezes. Th ere is no accessory muscle use or retractions. Cardiac: RRR without murmurs, gallops, or rubs. Extremities: Left upper extremity normal, right upper extremity with tenderness and swelling to dorsum of right hand with no breaks in skin. Neurovascularly in tact Progress Results/Orders Results/Orders Orders - WINSTON MARADIAGA MD Ortho Orders (03/22/25 21:32) Dressing Orders (03/22/25 21:42) Wound Care Orders (03/22/25 21:42) Completed Orders - WINSTON MARADIAGA MD Ibuprofen Tablet (Motrin Tablet) (03/22/25 21:35) Acetaminophen 325mg Tablet (Tylenol Tabl (03/22/25 21:35) Medications Received in ER Medications (Trade) Dose Ordered Sig/Sukhwinder Route PRN Reason Start Time Stop Time Status Last Admin Dose Admin (Motrin tablet) 400 mg ONCE ONCE PO 03/22/25 21:35 03/22/25 21:36 DC 03/22/25 21:55 400 MG (Tylenol tablet) 650 mg ONCE ONCE PO 03/22/25 21:35 03/22/25 21:36 DC 03/22/25 21:55 650 MG Vital Signs 03/22/25 03/22/25 03/22/25 17:33 19:26 19:30 Temp 98.2 Pulse 107 94 Resp 16 14 18 B/P (MAP) 137/97 137/95 (109) Pulse Ox 97 99 Medical Decision Making Findings Patient presents to the emergency room with hand pain and head pain after falling playing pickleball as per HPI. Differentials include but are not limited to intracranial bleed, fractures, dislocations, soft tissue injury therefore imaging performed which shows distal metacarpal fracture. CT scan reassuring for no emergent intracranial process. He had not feel he requires CT scan his facial bones. H test it was reassuring with no signs of impingement. Wound care provided. Departure Disposition: HOME / SELF CARE / HOMELESS Impression: Primary Impression: Fracture of fourth metacarpal bone of right hand Condition: Stable Discharge Instructions: Metacarpal Fracture Additional Instructions: Call For hours office in the morning to arrange for follow up Referrals: NO PRIMARY CARE PROVIDER (PCP) KENDALL ATWOOD Jr., MD Education Educated: Patient Educated regarding: diagnosis, treatment, need for follow up Signature Scribe Signature: No scribe Attestation: The note accurately reflects work and decisions made by me.Winston Maradiaga MD 03/22/25 22:10 ROSLYN PINEDA March 22, 2025 17:49 WINSTON MARADIAGA MD March 22, 2025 21:42
--- NOTE | 2025-03-22 18:07 | RADIOLOGY REPORT ---
EXAM: DI HAND, COMPLETE (3VW MIN) CLINICAL INDICATION: RT.HAND PAIN AFTER FALL TECHNIQUE: DI HAND, COMPLETE (3VW MIN) Comparison: None FINDINGS/IMPRESSION: Fracture involving the distal 4th metacarpal.
--- NOTE | 2025-03-22 18:08 | RADIOLOGY REPORT ---
INDICATION: RT.WRIST PAIN AFTER FALL TECHNIQUE: 4 radiographic views of the right wrist were obtained. COMPARISON: None FINDINGS: Nondisplaced fracture involving the distal 4th metacarpal. IMPRESSION: Nondisplaced fracture involving the distal 4th metacarpal.
--- NOTE | 2025-03-22 18:26 | RADIOLOGY REPORT ---
Procedure: [facility] Study Date and Requested Time: 03/22/2025 05:47 PM History: fall Comparison: None Dose: CTDI: 46.96 mGy DLP: 754.71 mGycm Technique: Multiplanar images obtained through the brain without intravenous contrast. Findings: Mild frontoparietal predominant brain atrophy. Mild chronic small vessel ischemic changes. No hemorrhages, masses, mass effect, midline shift, herniation or cytotoxic edema following a large v ascular territory. No intra-axial or extra-axial fluid collections. No evidence of hydrocephalus. The basal cisterns are patent. The pituitary gland, sella and parasellar regions are unremarkable. The cerebellar tonsils are in nor mal position. The cerebellum is unremarkable. The orbits and globes are unremarkable. Layering fluid within the partially visualized right maxillar y sinus. Otherwise, the paranasal sinuses and mastoids are clear. There are no worrisome calvarial l esions. Right-sided periorbital soft tissue edema with internal foci of air and overlying wound. Impression: No evidence of acute intracranial abnormality. Right-sided Mild periorbital soft tissue edema with internal foci of air and overlying wound. Layering fluid with the right maxillary sinus. Maxillofacial CT for further evaluation.
[2025-03-22] MEDS: ibuprofen tablet 400 MG TABLET PO ONE (21:55)
[2025-03-22] MEDS: acetaminophen 325mg tablet PO ONE (21:55)
[2025-03-22 22:28] VITALS: BP 142/80; PULSE 70; RESP 18; TEMP 97.6; O2SAT 99
== END 2025-03-22 22:35 | disposition home or self-care (01) ==
LOC: ER 17:29
DX: S62.304A Unspecified fracture of fourth metacarpal bone, right hand, initial encounter for closed fracture (principal); R51.9 Headache, unspecified; E78.00 Pure hypercholesterolemia, unspecified; W19.XXXA Unspecified fall, initial encounter; Y93.89 Activity, other specified; Y92.89 Other specified places as the place of occurrence of the external cause; Y99.8 Other external cause status
CPT/HCPCS: 29125; 70450; 73110; 73130; 99284; A6258; A6449